=== PATIENT | male | born 1990 | race Caucasian/White ===

== ENCOUNTER 2019-03-23 13:03 | Emergency (ER) | payer MEDICAID | END 2019-03-23 14:33 | disposition left against medical advice (07) | LOC: ER 13:03 | DX: R50.9 Fever, unspecified (principal); Z53.21 Procedure and treatment not carried out due to patient leaving prior to being seen by health care provider ==

== ENCOUNTER 2023-06-02 02:00 | Emergency (ER) | payer OTHER ==
[~2023-06-02] VITALS: Ht 177.8 cm; Wt 122.0 kg
[2023-06-02 02:20] VITALS: TEMP 98.5; O2SAT 96
[2023-06-02] MEDS ORDERED: BENZ100C86 MT (03:25)
[2023-06-02] MEDS ORDERED: AMOX-494 MT (03:25)
[2023-06-02 03:48] VITALS: BP 119/79; PULSE 75; RESP 16
== END 2023-06-02 03:50 | disposition home or self-care (01) ==
LOC: ER 02:00
DX: J03.90 Acute tonsillitis, unspecified (principal); R07.9 Chest pain, unspecified
CPT/HCPCS: 99283